=== PATIENT | female | born 1980 | race Caucasian/White ===

== ENCOUNTER 2022-05-16 08:12 | Emergency (ER) | payer SELFPAY ==
--- OUTSIDE RECORDS SUMMARY | 2022-05-16 08:17 | XMS REPORT | Continuity of Care Document ---
:1980 Author Organization [facility] t Address [address] [place] [address] [address] [place] [address] Care Team Providers Name Role Phone DEREK BOYER Primary Care Physician Unavailable DEREK BOYER M.D., DEREK BRYANT M.D. Attending Clinic Sung Mckay Attending Clinician DEREK BOYER M.D., DEREK Hook Admitting Clinician Sung Maynard Admitting Clinician Problems Condition Condition Condition Status Onset Resolution Last Treating Co mments Source Name Details Category Date Date Treatment Clinician Date LEAKING LEAKING Diagnosis Active 2015-09-20 Memoria FLUID FLUID 09-19 18:29:00 l Active 00:00: [place] 09/20/2015 [facility] NO NO Diagnosis Active 2015-11-02 Mem oria 09-19 16:01:00 l CARE, CARE, 00:00: [place] VAGINAL VAGINAL 00 BLEEDING, BLEEDING, POSS POSS Active 09/20/2015 [facility] Anemia Anemia Problem Active 2015-09-25 Oliver cynthia (disorder) (disorder) 03-19 01:47:43 l Active 00:00: [place] 03/19/1990 00 Problem 09/25/2015 [facility] 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 [place] (disorder) (disorder) Active Problem 09/25/2015 [facility] Delivery Delivery Problem Active 2015-09-25 Memoria normal normal 01:47:43 l (disorder) (disorder) He rmann Active Problem 09/25/2015 [facility] Lyme Lyme Problem Active 2015-09-25 Memor ia disease disease 01:47:43 l (disorder) (disorder) He rmann Active Problem 09/25/2015 [facility] ABNORMAL ABNORMAL Diagnosis Active 2015-11-02 Memoria UTERINE UTERINE 16:01:00 l AND AND [place] VAGINAL VAGINAL BLEEDING, BLEEDING, U U Active [facility] Patient Patient Problem Resolve 2015-09-25 2015-09-25 Memoria currently currently d 5- 01:47:43 01:47:43 l 00:00: Deandre n (finding) (finding) 00 Resolved 07/20/2014 Problem 09/25/2015 [facility] 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 d 1- 01:47:43 01:47:43 l (disorder) (disorder) 00:00: He rmann Resolved 00 03/19/2012 Problem 09/25/2015 unkn grade [facility] 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:00: [place] (organism) (organism) 00 Resolved 03/19/2012 Problem 09/25/2015 [facility] Allergies, Adverse Reactions, Alerts Allergy Allergy Status Severity Reaction(s) Onset Inactive Treating Comm ents Source Name Type Date Date Clinician Aspirin Propensi Active 2017-03 [facility] adverse 00:00: Hospita reaction 00 l s to drug Iodine Propensi Active GI Methodi ty to Intolerance 8-19 st adverse 00:00: Hospita reaction 00 l s to drug Food Food Active Moderate [facility]oria Shellfis Shellfis l h h [place] Social History Social Habit Start Date Stop Date Quantity Comments Source History of tobacco Smokes tobacco [facility] use daily Hospital Alcohol intake 2018-02-04 2018-02-04 Current drinker [facility] 00:00:00 00:00:00 of alcohol Hospital (finding) Cigarettes smoked 2018-02-03 2018-02-03 [facility] current (pack per 00:00:00 00:00:00 Hospita l day) - Reported Tobacco use and 2018-02-03 2018-02-03 Smokeless tobacco [facility] exposure 00:00:00 00:00:00 non-user Hospital Social History 2015-09-21 2015-09-21 [facility] 13:09:13 13:09:13 Sex Assigned At [birth year] [facility] 00:00:00 00:00:00 Hospital Smoking Status Start Date Stop Date Source Smokes tobacco daily 2018-02-03 00:00:00 [facility] Medications Ordered Filled Start Stop Current Ordering Indication Dosage Frequency Signature Comments Components Source Medication Medication Date Date Medication? Clinician (SIG) Name Name cephalexin Yes 500 mg = 1 M emoria 500 mg oral 09-21 cap, PO, l capsule 23:53: QID, X 7 Deandre n 00 day, # 28 cap, 0 Refill(s) Keflex No Notes: Memoria - Take on l 18:30: empty [place] 00 stomach. (Same As: Keflex) ferrous No Notes: Memoria sulfate 09-21 Give with l 17:00: food. "Do [place] Not Crush" ibuprofen Yes 600 mg = 1 Me moria 600 mg oral 09-21 tab, PO, l tablet 15:14: Q6H, # 20 Deandre n 00 tab, 0 Refill(s) docusate Yes 100 mg = 1 Mem oria sodium 100 09-21 cap, PO, l mg oral 15:14: BID, PRN Deandre n capsule 00 Constipati on, # 28 cap, 0 Refill(s) ferrous Yes 325 mg = 1 Oliver cynthia sulfate 325 06 tab, PO, l mg oral 15:14: TID-Meals, Herm star enteric 00 # 42 tab, coated 0 tablet Refill(s) Ibuprofen No Notes: Memori a 09-20 (Same as: l 17:00: Motrin) [place] 00 "Do Not Crush" Take with food. No 1 tab, Memoria Multivitami 09-20 Route: PO, l ns oral 14:00: Drug Form: Herm star tablet 00 TAB, Dosing Weight 63.045, kg, Daily, Start date: 09/21/15 9:00:00 CDT, Duration: 30 day, Stop date: 10/20/15 9:00:00 CDT Acetaminoph No Notes: Oliver cynthia en 325 MG / 09-20 (Same as: l Hydrocodone 12:49: [place] Zora nn Bitartrate 00 325/5) Do 5 MG Oral not exceed Tablet 4gm/day of acetaminop hen. Acetaminoph No Notes: Do M emoria en 325 MG / 09-20 not exceed l Hydrocodone 12:49: 4gm/day of [place] Bitartrate 00 acetaminop 10 MG Oral hen. (Same Tablet as: [place] 325/10) Benzocaine No Notes: Memor ia 200 MG/ML 09-20 (Same As: l Topical 12:49: Dermoplast [facility] [place] 00 ) WASTE: [Dermoplast Aerosol - ] Return to Pharmacy FOR EXTERNAL USE ONLY zolpidem No Notes: Memoria 09-20 (Same As: l 12:49: Ambien) [place] 00 lanolin No 1 appl, Memoria topical 09-20 Route: l 12:49: TOP, PRN, [place] 00 Drug form: CRM, PRN Other -See Comment, Start date: 09/21/15 7:49:00 CDT, Duration: 30 day, Stop date: 10/21/15 7:48:00 CDT Bisacodyl No Notes: Memori a 09-20 (Same As: l 12:49: Dulcolax, [place] 00 Bisco-Lax) Lactated No 1,000 mL, Oliver cynthia Ringers 09-20 Rate: 100 l 1,000 mL 12:49: ml/hr, [place] Infuse over: 10 hr, Route: IV, Dosing Weight 63.045 kg, Total Volume: 1,000, Start date: 09/21/15 7:49:00 CDT, Duration: 30 day, Stop date: 10/21/15 7:48:00 CDT Docusate No Notes: Memoria 09-20 (Same as: l 12:49: Colace) [place] 00 (Do Not Crush) Ondansetron No Notes: Oliver cynthia 7-05 (Same as: l 12:49: Zofran) [place] 00 MEDICATION WASTE Product Size: 4 mg Product Wasted: ___ mg Methylergon No Notes: Oliver cynthia ovine 7-05 (Same l 12:49: as:Metherg [place] 00 ine) Oxytocin No Notes: Memoria 0.06 UNT/ML 7-05 (Same as: l Injectable 12:49: OXYTOCIN-D H ermann Solution 00 5LR) Penicillin No 2,500,000 Me moria G 7-05 unit, 50 l 06:00: mL, Route: IVPB, Drug form: INJ, ABXQ4H, Dosing Weight 63.045, kg, Start date: 09/21/15 1:00:00 CDT Ibuprofen No Notes: Memori a 7-05 (Same as: l 05:00: Motrin) "Do Not Crush" Take with food. Saline No Notes: Memoria Flush 0.9% 7-05 (Same as: l 02:00: BD [place] 00 Posiflush) Celestone No Notes: Memori a Soluspan 7-05 (betametha l 02:00: sone [place] 00 acetate-so dium phosphate 6 mg/ml INJ) (Same As: [place] Soluspan) Penicillin No Notes: Memor ia G Potassium 7-05 (Same as: l [id number] 02:00: Pfizerpen) Herm star UNT/ML 00 Injectable MEDICATION Solution WASTE Product Size: 5,000,000 unit Product Wasted: ___ unit Citric Acid No Notes: Oliver cynthia / sodium 7-05 (Same As: l citrate 02:00: Bicitra) Deandre n 00 Methylergon No Notes: Oliver cynthia ovine 7-05 (Same l 02:00: as:Metherg [place] 00 ine) Carboprost No Notes: Memor ia 7-05 (Same As: l 02:00: Hemabate) [place] 00 Misoprostol No Notes: Oliver cynthia 7-05 (Same l 02:00: as:Cytotec [place] 00 ) Take with food Famotidine No Notes: Memor ia -05 (Same as: l 02:00: Pepcid) [place] 00 Can be dilute in 5-10cc NS IVP: Slow IV push over at least 2 minutes. Ondansetron No Notes: Oliver cynthia 7-05 (Same as: l 01:20: Zofran) [place] MEDICATION WASTE Product Size: 4 mg Product Wasted: ___ mg Terbutaline No Notes: Oliver cynthia - DO NOT l 01:20: USE IN [place] MOTOR ANALYST AREA (Same As: Brethine) Lidocaine No Notes: Memori a Hydrochlori 09-20 (Same as: l de 10 MG/ML 01:20: Xylocaine) [place] Injectable 00 Solution Acetaminoph No Notes: Oliver cynthia en 325 MG / 09-20 (Same as: l Hydrocodone 01:20: [place] Zora nn Bitartrate 00 325/5) Do 5 MG Oral not exceed Tablet 4gm/day of acetaminop hen. Oxytocin No Notes: Memoria 0.06 UNT/ML 09-20 (Same as: l Injectable 01:20: OXYTOCIN-D H ermann Solution 00 5LR) Butorphanol No Notes: Oliver cynthia -05 (Same As: l 01:20: Stadol) [place] 00 Lactated No 1,000 mL, Oliver cynthia Ringers 09-20 Rate: 125 l 1,000 mL 01:20: ml/hr, [place] 00 Infuse over: 8 hr, Route: IV, Dosing Weight 63.045 kg, Total Volume: 1,000, Start date: 09/20/15 20:20:00 CDT, Duration: 30 day, Stop date: 10/20/15 20:19:00 CDT Saline No Notes: Memoria Flush 0.9% 05 (Same as: l 00:24: BD [place] 00 Posiflush) Calcium No 1,000 mL, Memor ia Chloride 09-19 Rate: 125 l 0.0014 22:30: ml/hr, [place] MEQ/ML / 00 Infuse Potassium over: 8 Chloride hr, Route: 0.004 IV, Dosing MEQ/ML / Weight Sodium 63.045 kg, Chloride Total 0.103 Volume: MEQ/ML / 1,000, Sodium Start Lactate date: 0.028 09/20/15 MEQ/ML 17:30:00 Injectable CDT, Solution Duration: 30 day, Stop date: 10/20/15 17:29:00 CDT Vital Signs Vital Name Observation Time Observation Value Comments Source Heart Rate 2015-09-22 21:29:00 [facility] [place] Temperature Oral (F) 2015-09-22 21:29:00 97.8 F [facility] [place] Systolic (mm Hg) 2015-09-22 21:29:00 Oliver rial [place] Diastolic (mm Hg) 2015-09-22 21:29:00 Mem orial [place] Respitory Rate 2015-09-22 21:29:00 Memori al [place] Systolic (mm Hg) 2015-09-22 12:51:00 Oliver rial [place] Diastolic (mm Hg) 2015-09-22 12:51:00 Mem orial [place] Respitory Rate 2015-09-22 12:51:00 Memori al [place] Temperature Oral (F) 2015-09-22 12:51:00 97.7 F [facility] [place] Heart Rate 2015-09-22 12:51:00 [facility] [place] Respitory Rate 2015-09-22 09:13:00 Memori al [place] Heart Rate 2015-09-22 09:13:00 [facility] [place] Systolic (mm Hg) 2015-09-22 09:13:00 Oliver rial [place] Diastolic (mm Hg) 2015-09-22 09:13:00 Mem orial [place] Temperature Oral (F) 2015-09-22 09:13:00 97.8 F [facility] [place] Weight 2015-09-21 13:02:00 [facility] [place] Weight 2015-09-20 21:44:00 [facility] [place] BMI Calculated 2015-09-20 21:44:00 Memori al [place] Height 2015-09-20 21:44:00 152.4 cm [facility] [place] Procedures This patient has no known procedures. Plan of Care Planned Activity Planned Date Details Comments Source Future Scheduled 2022-03-11 [facility] (#1) [code = COVID-19 VACCINE (#1)] Future Scheduled 2022-03-11 Scre[facility] for [facility] Test 15:26:48 malignant neoplasm of cervix (procedure) [code = 839906408] Future Scheduled 2022-03-11 BREAST CANCER [facility] Test 15:26:48 SCREENING [code = BREAST CANCER SCREENING] Future Scheduled 2022-03-11 [facility]ACCINE [facility] Test 15:26:48 [code = INFLUENZA VACCINE] Encounters Start End Encounter Admission Attending Care Care Encounter Source Date/Time Date/Time Type Type Clinicians Facility Department ID 2017-04-24 2017-04-24 Emergency E [facility] [id number] 17:02:00 17:02:00 [facility] 2017-04-11 2017-04-15 Inpatient Henry BOYER, [facility] [id number] [address] 06:40:00 15:30:00 DEREK BRYANT M.D. [facility] 2015-09-20 2015-09-22 [facility]patient [facility] [id number] [facility] 23[facility]30[facility]00 [place] 00 l [facility] 2015-09-20 2015-09-22 Outpatient ANNE Eaton [facility] [id number] 16:26:00 18:30:00 Sung Wilder 00 Results Test Description Test Time Test Comments Results Result Sour e Comments [id number]&PELVIS 2017-04-15 CT ABDOMEN&PELVIS W/CONTRAST 04:06:06 W/CONTRASTLocation:J9Aft er hours services provided 04/15/2017 4:00 AMIndication: HematomaComparison:None availableTechnique: Axial CT images were acquired through the abdomen and pelvisfollowing the bolus administration of intravenous contrast. Sagittal andcoronal reformatted images are provided for interpretation. All CT scansat this facility use dose modulation, iterative reconstruction, and/orweight-based dosing when appropriate to reduce radiation dose to as lowas reasonably possible.Findings:Lower thorax: Lung bases are clearHepatobiliary: The liver is normal in size and density. No intrahepaticbiliary duct dilatation is seen. Nonspecific thickening of thegallbladder wall. Correlate for right upper quadrant tenderness.Spleen, pancreas and adrenal glands: NormalUrogenital: The kidneys are normal in size and density with no evidenceof stone or hydronephrosis. The ureters are normal in course andcaliber. The urinary bladder appears normal. Postsurgical changes areseen within the anterior abdominal wall consistent with recent cesareansection. Hyperdense material is present within the endometrial cavitybest visualized on axial image 72 series 3 and coronal image 43measuring approximately 2.7 cm craniocaudal x 1.7 cm anterior posteriorx 2.3 cm mediolateral. This could represent blood products or retainedproducts of conception. Expected subcutaneous fat stranding andemphysematous changes are noted consistent with the early postprocedural period.Gastrointestinal: No evidence of bowel obstruction or intra-abdominalfree fluid. Trace free air is noted as described above.Lymph nodes and retroperitoneum: No adenopathy or retroperitoneal mass.Vasculature:No acute abnormality.Bones and soft tissues: Unremarkable.Impression: 1. Postsurgical changes from section. There is hyperdensematerial extending into the lower uterine segment which could representblood products versus retained products of conception. Pelvic ultrasoundis recommended for further evaluation.2. Nonspecific thickening of the gallbladder wall. Correlate with rightupper quadrant tenderness. Consider right upper quadrant ultrasound ifindicated.3. Expected postsurgical changes in the anterior abdominal wall andperitoneum. Basic Metabolic Panel 2017-04-15 00:46:00 Test Item Value Reference Range Interpretation Comme nts Sodium (test code = NA) 136 mmol/L 135-145 N Potassium (test code = K) 4.0 mmol/L 3.5-5.1 N Chloride (test code = CL) 101 mmol/L 98-105 N Carbon Dioxide (test code = 27 mmol/L 22-29 N CO2) Glucose (test code = GLU) 93 mg/dL 70-115 N Blood Urea Nitrogen (test 11 mg/dL 6-20 N code = BUN) Creatinine (test code = 0.6 mg/dL 0.5-0.9 N CREAT) Calcium (test code = CA) 8.6 mg/dL 8.3-10.5 N BUN/Creatinine Ratio (test 18.3 code = BCRATIO) Anion Gap (test code = 8 mmol/L 7-16 N AGAP) Estimated GFR (test code = >60 mL/min/1.73m2 eGFR (estimated Glomerular GFR) Filtration Rate ) is an estimated value ,calculated from the patien t's serum creatinine usin g the MDRD equation.It is NOT the patient's actua l GFR. The eGFR provides a more clinicallyusefu l measure of kidney disease than serum creatinine sergio e.This calculation derick es sex and race into accou nt, if the informationis p rovided. If the race is not provided, and the patient isAfrican-Amjono can, multiply by 1.212. If se x is not provided, and t hepatient is female, multipl y by 0.742. Results for pat ients <18 years ofage hav e not been validated by e MDRD study and should be i nterpretedwith caution.eGFR Re sult Interpretation: eGFR > or = 60 is in the Ro l RangeeGFR < 60 may mean kid aurelio diseaseeGFR < 1 5 may mean kidney failure* Ranges recommended by the National Kidney Foundation,http ://nkdep.nih.g ov CBC with [id number] 20:59:00 Test Item Value Reference Range Interpretation Comments WBC (test code = WBC) 5.7 K/cumm 4.4-10.5 N RBC (test code = RBC) 2.63 M/cumm 3.75-5.20 L Hemoglobin (test code 6.9 gm/dL 12.2-14.8 LL = HGB) Hematocrit (test code 21.7 % 36.5-44.4 L = HCT) MCV (test code = MCV) 82.8 fL 80-100 N MCH (test code = MCH) 26.3 pg 27.0-32.5 L MCHC (test code = 31.8 g/dL 32.0-37.5 L MCHC) RDW (test code = RDW) 17.1 % 11.5-14.5 H Platelet Count (test 283 K/cumm 140-440 N code = PLTCT) MPV (test code = MPV) 8.3 fL Diff Method (test code Auto = DIFFM) Neutrophil (test code 62.7 % 36-70 N = NEUT) Lymphocyte (test code 29.6 % 12-44 N = LYMPH) Monocyte (test code = 4.1 % 0-11 N MONO) Eosinophil (test code 3.2 % 0-7 N = EOS) Basophil (test code = 0.4 % 0-2 N BASO) Neutro Abs (test code 3.6 K/cumm 1.6-7.4 N = ANEUT) Lymph Abs (test code = 1.7 K/cumm 0.5-4.6 N ALYMPH) Ulster Abs (test code = 0.2 K/cumm 0.0-1.2 N AMONO) Eos Abs (test code = 0.18 K/cumm 0.00-0.74 N AEOS) Baso Abs (test code = 0.0 K/cumm 0.00-0.21 N ABASO) RBC Morphology (test Slight Polychromasia ; code = RBCMRPH) Slight Anisocytosis ; Few Rouleaux Present Hypochromic (test code Slight = HYPO) Platelet Est (test Normal Platelet on code = PLTEST) Smear CBC with [id number] 08:41:00 Test Item Value Reference Range Interpretation Comments WBC (test code = WBC) 6.4 K/cumm 4.4-10.5 N RBC (test code = RBC) 2.90 M/cumm 3.75-5.20 L Hemoglobin (test code = HGB) 7.3 gm/dL 12.2-14.8 L Hematocrit (test code = HCT) 22.9 % 36.5-44.4 L MCV (test code = MCV) 79.1 fL 80-100 L MCH (test code = MCH) 25.3 pg 27.0-32.5 L MCHC (test code = MCHC) 32.0 g/dL 32.0-37.5 N RDW (test code = RDW) 16.7 % 11.5-14.5 H Platelet Count (test code = 249 K/cumm 140-440 N PLTCT) MPV (test code = MPV) 9.6 fL Diff Method (test code = DIFFM) Auto Neutrophil (test code = NEUT) 65.5 % 36-70 N Lymphocyte (test code = LYMPH) 27.2 % 12-44 N Monocyte (test code = MONO) 4.6 % 0-11 N Eosinophil (test code = EOS) 2.3 % 0-7 N Basophil (test code = BASO) 0.4 % 0-2 N Neutro Abs (test code = ANEUT) 4.2 K/cumm 1.6-7.4 N Lymph Abs (test code = ALYMPH) 1.7 K/cumm 0.5-4.6 N Ulster Abs (test code = AMONO) 0.3 K/cumm 0.0-1.2 N Eos Abs (test code = AEOS) 0.15 K/cumm 0.00-0.74 N Baso Abs (test code = ABASO) 0.0 K/cumm 0.00-0.21 N Hypochromic (test code = HYPO) Slight RBC, Crossmatch [id number] 06:00:00 Test Item Value Reference Range Interpretation Comments Product 1 Code (test code = E4533 PRODCODE1) Unit 1 ID (test code = [id number] UNITID1) Unit 1 ABO (test code = A UNITABO1) Unit 1 Rh (test code = POS UNITRH1) Unit 1 Interp (test code = Compatible UNITINTERP1) Unit 1 Status (test code = PT UNITSTAT1) Product 2 Code (test code = E0336 PRODCODE2) Unit 2 ID (test code = [id number] UNITID2) Unit 2 ABO (test code = A UNITABO2) Unit 2 Rh (test code = POS UNITRH2) Unit 2 Interp (test code = Compatible UNITINTERP2) Unit 2 Status (test code = PT UNITSTAT2) Product 3 Code (test code = E4532 PRODCODE3) Unit 3 ID (test code = [id number] UNITID3) Unit 3 ABO (test code = A UNITABO3) Unit 3 Rh (test code = POS UNITRH3) Unit 3 Interp (test code = Compatible UNITINTERP3) Unit 3 Status (test code = PT UNITSTAT3) [id number] 18:53:00 Test Item Value Reference Range Interpretation Comments WBC (test code = 11.1 K/cumm 4.4-10.5 H WBC) RBC (test code = 3.17 M/cumm 3.75-5.20 L RBC) Hemoglobin (test 8.2 gm/dL 12.2-14.8 L READ BACK L AB code = HGB) VALUESVERIFIED BY REPEAT TESTINGc alled to Gloria Rossi @ [facility] tra nsfused Hematocrit (test 24.9 % 36.5-44.4 L code = HCT) MCV (test code = 78.7 fL 80-100 L MCV) MCH (test code = 25.9 pg 27.0-32.5 L MCH) MCHC (test code = 32.9 g/dL 32.0-37.5 N MCHC) RDW (test code = 15.8 % 11.5-14.5 H RDW) Platelet Count 193 K/cumm 140-440 N (test code = PLTCT) MPV (test code = 11.0 fL MPV) Hemogram [id number] 23:57:00 Test Item Value Reference Range Interpretation Comments WBC (test code = WBC) 9.1 K/cumm 4.4-10.5 N RBC (test code = RBC) 2.13 M/cumm 3.75-5.20 L Hemoglobin (test code = HGB) 4.9 g/dL 12.2-14.8 LL Hematocrit (test code = HCT) 16.7 % 36.5-44.4 L MCV (test code = MCV) 78.1 fL 80.0-100.0 L MCH (test code = MCH) 23.0 pg 27.0-32.5 L MCHC (test code = MCHC) 29.4 g/dL 32.0-37.5 L RDW (test code = RDW) 17.1 % 11.5-14.5 H Platelet Count (test code = 209 K/cumm 140-440 N PLTCT) MPV (test code = MPV) 9.3 fL RPR, [id number] 15:50:00 Test Item Value Reference Range Interpretation Comments RPR (test code = RPR) Non-Reactive Non-Reactive N HIV [id number] 15:25:00 Test Item Value Reference Range Interpretation Comments HIV 1/2 Antibody Non-Reactive Non-Reactive N HIV1/2 Anti body screen (test code = result indicate s the HIV1/2AB) absence of HIV1 and OXP2feujoppjl.H owever, A Non-Reactive screen result does not rule out exposure orinfection. If an acute infection is suspected, HIV RNA Quantitative is recommended. P24 Antigen (test Non-Reactive Non-Reactive N P24 Ag scr een result code = P24) indicates the a bsence of P24 antigen, which is anindicator of HIV-1 acute infection.Howev er, A Non-Reactive sc reen does not rule o ut exposure or infection.If ac margaret HIV-1 is suspec gilberto, HIV RNA Quantit ative is recommended. Rubella [id number] 15:10:00 Test Item Value Reference Range Interpretation Comments Rubella IgG (test code = RUBELIGG) Immune Immune N Antibody Screen - [id number] 08:08:00 Test Item Value Reference Range Interpretation Comments Antibody Screen (test code = ABSCR) Negative Hep B Surface [id number] 08:00:00 Test Item Value Reference Range Interpretation Comments Hep Bs Ag (test code = HBSAG) Nonreactive Non-Reactive A [id number] 08:00:00 Test Item Value Reference Range Interpretation Comments Amphetamine (test code Negative Negative N For d iagnostic purposes = AMPH) only, positive results should always b e assessedin conjunctionwith the patient's medic al history,clinica l examination and otherfindings.T o fulfill legal requirements, a more specific altern ate chemical method must be used inorder to obtain a Confirmed davion lytical result. GC/MS i s the preferred confi rmatory method. Barbiturates (test Negative Negative N code = DORCAS) Benzodiazepine (test Negative Negative N code = ROSA MARIA) Cocaine (test code = Negative Negative N COCA) Methadone (test code = Negative Negative N MTHD) Opiates (test code = Negative Negative N OPIA) PCP (test code = PCP) Negative Negative N Propoxyphene (test Negative Negative N code = PROPOX) THC (test code = THC) Negative Negative N Blood Type and [id number] 07:51:00 Test Item Value Reference Range Interpretation Comments ABO type (test code = ABO) A Rh Type (test code = RH) Positive Blood Gas+pH+[id number] 07:36:00 Test Item Value Reference Range Interpretation Comments pH, Blood Gas (test code 7.311 pH Units = BGPH) pCO2 (test code = PCO2) 42.7 mm Hg Bicarbonate (test code = 21.5 HCO3) Base Excess (test code = -4.6 mmol/L BE) tHB (test code = RTHB) 15.2 gm/dL Hematocrit, Blood Gas 46.6 % (test code = BGHCT) FIO2 % (test code = 21 % FIO2) Patient Temperature 37.0 Degrees Celcius (test code = PTTEMP) Comment (test code = NICPH ''VENOUS'' COMMENT) Puncture Site (test code Umbilical = PUNSITE) Drawing Tech ID (test DRLeo ROSALIND code = DRAWTECH) Respiratory Rate (test 0 code = RESP RATE) Blood Gas+pH+[id number] 07:34:00 Test Item Value Reference Range Interpretation Comments pH, Blood Gas (test code 7.319 pH Units = BGPH) pCO2 (test code = PCO2) 47.5 mm Hg Bicarbonate (test code = 24.4 HCO3) Base Excess (test code = -2.2 mmol/L BE) tHB (test code = RTHB) 15.1 gm/dL Hematocrit, Blood Gas 46.2 % (test code = BGHCT) FIO2 % (test code = 21 % FIO2) Patient Temperature 37.0 Degrees Celcius (test code = PTTEMP) Comment (test code = NICPH ''ARTERIAL'' COMMENT) Puncture Site (test code Umbilical = PUNSITE) Drawing Tech ID (test ROSALIND code = DRAWTECH) Respiratory Rate (test 0 code = RESP RATE) CBC LD with [id number] 07:23:00 Test Item Value Reference Range Interpretation Comments WBC (test code = WBC) 12.0 K/cumm 4.4-10.5 H RBC (test code = RBC) 4.06 M/cumm 3.7-5.2 N Hemoglobin (test code = HGB) 9.3 g/dL 12.2-14.8 L Hematocrit (test code = HCT) 30.1 % 36.5-44.4 L MCV (test code = MCV) 74.0 fL 80.0-100.0 L MCH (test code = MCH) 22.9 pg 27.0-32.5 L MCHC (test code = MCHC) 31 g/dL 32-37 L RDW (test code = RDW) 16.7 % 11.5-14.5 H Platelet Count (test code = 245 K/cumm 140-440 N PLTCT) MPV (test code = MPV) 11.0 fL Diff Method (test code = DIFFM) Auto Neutrophil (test code = NEUT) 74.2 % 36.0-70.0 H Lymphocyte (test code = LYMPH) 19.6 % 12.0-44.0 N Monocyte (test code = MONO) 4.7 % 0.0-11.0 N Eosinophil (test code = EOS) 1.0 % 0.0-7.0 N Basophil (test code = BASO) 0.4 % 0.0-2.0 N Neutro Abs (test code = ANEUT) 8.9 K/cumm 1.6-7.4 H Lymph Abs (test code = ALYMPH) 2.3 K/cumm 0.5-4.6 N Ulster Abs (test code = AMONO) 0.6 K/cumm 0.0-1.2 N Eos Abs (test code = AEOS) 0.1 K/cumm 0.0-0.7 N Baso Abs (test code = ABASO) 0.1 K/cumm 0.0-0.2 N Microcytosis (test code = MICRO) Slight Hypochromic (test code = HYPO) Moderate [id number] 00:08:00 Test Item Value Reference Range Interpretation Comments Hct (test code = Hct) 25.6 36.0-48.0 [id number] 00:08:00 Test Item Value Reference Range Interpretation Comments Hgb (test code = Hgb) 7.8 12.0-16.0 [facility] [id number] 10:07:00 Test Item Value Reference Range Interpretation Comments N gonorrhea by Amp Det Negative *NA*(09/21/15 (APTIMA) (test code = N 5:07 AM) gonorrhea by Amp Det (APTIMA)) [facility] [id number] 10:07:00 Test Item Value Reference Range Interpretation Comments C trachomatis by Amp Det Negative *NA*(09/21/15 (APTIMA) (test code = C 5:07 AM) trachomatis by Amp Det (APTIMA)) [facility] [id number] 10:07:00 Test Item Value Reference Range Interpretation Comments Source APTIMA (test Vaginal *NA*(09/21/15 code = Source APTIMA) 5:07 AM) [facility] BANK [id number] 01:35:00 Test Item Value Reference Range Interpretation Comments Rhig Reqd (test code = See Note 1(09/20/15 8:35 Rhig Reqd) PM) [facility] [id number] 01:35:00 Test Item Value Reference Range Interpretation Comments Antibody Scrn (test Negative (09/20/15 8:35 code = Antibody Scrn) PM) [facility] [id number] 01:35:00 Test Item Value Reference Range Interpretation Comments ABO/Rh (test code = ABO/Rh) A POS [id number] 01:35:00 Test Item Value Reference Range Interpretation Comments Lymphocytes (test code = Lymphocytes) 27.3 20.0-40.0 [facility] [id number] 01:35:00 Test Item Value Reference Range Interpretation Comments Plt Morph (test code = Normal (09/20/15 8:35 PM) Plt Morph) [facility] [id number] 01:35:00 Test Item Value Reference Range Interpretation Comments Segs (test code = Segs) 65.9 45.0-75.0 [facility] [id number] 01:35:00 Test Item Value Reference Range Interpretation Comments RBC Morph (test code = See Note (09/20/15 8:35 RBC Morph) PM) [facility] [id number] 01:35:00 Test Item Value Reference Range Interpretation Comments Anisocyte (test code = 1+ *ABN*(09/20/15 8:35 Anisocyte) PM) [facility] [id number] 01:35:00 Test Item Value Reference Range Interpretation Comments Microcyte (test code = 1+ *ABN*(09/20/15 8:35 Microcyte) PM) [facility] [id number] 01:35:00 Test Item Value Reference Range Interpretation Comments Eosinophils # (test code 0.1 See_Comment [A utomated message] The = Eosinophils #) system whic h generated this result tra nsmitted reference range : <=0.5. The reference r precious was not used to int erpret this result as normal/abnormal . [facility] [id number] 01:35:00 Test Item Value Reference Range Interpretation Comments Basophils # (test code 0.1 See_Comment [Aut omated message] The = Basophils #) system which generated this result tra nsmitted reference range : <=0.2. The reference r precious was not used to int erpret this result as normal/abnormal . [facility] [id number] 01:35:00 Test Item Value Reference Range Interpretation Comments Monocytes # (test code 0.3 See_Comment [Aut omated message] The = Monocytes #) system which generated this result tra nsmitted reference range : <=0.8. The reference r precious was not used to int erpret this result as normal/abnormal . [facility] CenterEhyclcnUIGWNCOERN7610-95-28:35:00 Test Item Value Reference Range Interpretation Comments Lymphocytes # (test code = Lymphocytes 1.7 1.0-5.5 #) [facility] CenterXywlhayJOMNSJOOWB0780-96-31:35:00 Test Item Value Reference Range Interpretation Comments Basophils (test code = 1.1 See_Comment [Aut omated message] The Basophils) system which ge nerated this result tra nsmitted reference range : <=1.0. The reference r precious was not used to int erpret this result as normal/abnormal . [facility] CenterWyxmyypSAPQMVWFKM1276-79-16:35:00 Test Item Value Reference Range Interpretation Comments Segs-Bands # (test code = Segs-Bands #) 4.0 1.5-8.1 [facility] Cent[id number] 01:35:00 Test Item Value Reference Range Interpretation Comments Monocytes (test code = Monocytes) 4.7 2.0-12.0 [facility] C[id number] 01:35:00 Test Item Value Reference Range Interpretation Comments Eosinophils (test code = 1.0 See_Comment [A utomated message] The Eosinophils) system which ge nerated this result tra nsmitted reference range : <=4.0. The reference r precious was not used to int erpret this result as normal/abnormal . [facility] [id number] 01:35:00 Test Item Value Reference Range Interpretation Comments MPV (test code = MPV) 9.6 7.4-10.4 [facility] [id number] 01:35:00 Test Item Value Reference Range Interpretation Comments RBC (test code = RBC) 4.26 4.20-5.40 [facility] CenterAmycxirMLOPZDMMLX3751-08-71 01:35:00 Test Item Value Reference Range Interpretation Comments WBC (test code = WBC) 6.1 3.7-10.4 [facility] CenterVunifckUMKSDVXSME8345-15-80 01:35:00 Test Item Value Reference Range Interpretation Comments MCV (test code = MCV) 75.0 80.0-98.0 [facility] [id number] 01:35:00 Test Item Value Reference Range Interpretation Comments MCH (test code = MCH) 22.5 pg 27.0-31.0 [facility] Cent[id number] 01:35:00 Test Item Value Reference Range Interpretation Comments Hct (test code = Hct) 32.0 36.0-48.0 [facility] [id number] 01:35:00 Test Item Value Reference Range Interpretation Comments Hgb (test code = Hgb) 9.6 12.0-16.0 [facility] [id number] 01:35:00 Test Item Value Reference Range Interpretation Comments RDW (test code = RDW) 22.5 11.5-14.5 [facility] Cent[id number] 01:35:00 Test Item Value Reference Range Interpretation Comments Platelet (test code = Platelet) 156 133-450 [facility] Cent[id number] 01:35:00 Test Item Value Reference Range Interpretation Comments MCHC (test code = MCHC) 30.0 32.0-36.0 [id number] 01:35:00 Test Item Value Reference Range Interpretation Comments Rubella IgG (test code = Rubella IgG) no gt [facility] [id number] 01:35:00 Test Item Value Reference Range Interpretation Comments Treponemal Scr (test Non Reactive code = Treponemal Scr) *NA*(09/20/15 8:35 PM) [facility] [id number] 01:35:00 Test Item Value Reference Range Interpretation Comments Hep Bs Ag (test code Negative *NA*(09/20/15 = Hep Bs Ag) 8:35 PM) [facility] [id number] 01:35:00 Test Item Value Reference Range Interpretation Comments HIV. (test code = Negative *NA*(09/20/15 HIV.) 8:35 PM) [facility] [id number] 22:05:00 Test Item Value Reference Range Interpretation Comments Amnisure ROM (test code Negative 1(09/20/15 5:05 = Amnisure ROM) PM) [facility] [id number] 21:44:00 Test Item Value Reference Range Interpretation Comments UA Color (test code = UA Color) [facility] [id number] 21:44:00 Test Item Value Reference Range Interpretation Comments UA Spec Grav (test code = UA Spec Grav) 1.026 [facility] [id number] 21:44:00 Test Item Value Reference Range Interpretation Comments UA Turbidity (test code Slight *ABN*(09/20/15 = UA Turbidity) 4:44 PM) [facility] [id number] 21:44:00 Test Item Value Reference Range Interpretation Comments UA Bili (test code = Small *ABN*(09/20/15 4:44 UA Bili) PM) [facility] [id number] 21:44:00 Test Item Value Reference Range Interpretation Comments UA Ketones (test code = UA Trace mg/dL Ketones) [facility] [id number] 21:44:00 Test Item Value Reference Range Interpretation Comments UA Glucose (test code = UA Negative mg/dL Glucose) [facility] [id number] 21:44:00 Test Item Value Reference Range Interpretation Comments UA Protein (test code = UA Protein) 100 mg/dL [facility] [id number] 21:44:00 Test Item Value Reference Range Interpretation Comments UA pH (test code = UA pH) 6.0 5.0-8.0 [facility] [id number] 21:44:00 Test Item Value Reference Range Interpretation Comments UA Blood (test code = Moderate *ABN*(09/20/15 UA Blood) 4:44 PM) [facility] [id number] 21:44:00 Test Item Value Reference Range Interpretation Comments UA Nitrite (test code Positive *ABN*(09/20/15 = UA Nitrite) 4:44 PM) [facility] [id number] 21:44:00 Test Item Value Reference Range Interpretation Comments UA Urobilinogen (test code = UA 4.0 0.1-1.0 Urobilinogen) [facility] [id number] 21:44:00 Test Item Value Reference Range Interpretation Comments UA Leuk Est (test Moderate *ABN*(09/20/15 code = UA Leuk Est) 4:44 PM) [facility] [id number] 21:44:00 Test Item Value Reference Range Interpretation Comments UA Bacteria (test code = UA Moderate /HPF Bacteria) [facility] [id number] 21:44:00 Test Item Value Reference Range Interpretation Comments UA RBC (test code = 2 See_Comment [Automa gilberto message] The UA RBC) system which ge nerated this result transmit gilberto reference range : <=2. The reference range was not used to interpr et this result as ro l/abnormal. [facility] [id number] 21:44:00 Test Item Value Reference Range Interpretation Comments UA WBC (test code = 85 See_Comment [Automa gilberto message] The UA WBC) system which ge nerated this result transmit gilberto reference range : <=5. The reference range was not used to interpr et this result as ro l/abnormal. [facility] [id number] 21:44:00 Test Item Value Reference Range Interpretation Comments UA Sq Epi (test code = UA Sq Epi) Many /LPF [facility] [id number] 21:44:00 Test Item Value Reference Range Interpretation Comments U Amph Scr (test code Negative *NA*(09/20/15 = U Amph Scr) 4:44 PM) [facility] [id number] 21:44:00 Test Item Value Reference Range Interpretation Comments U Opiate Scr (test Negative *NA*(09/20/15 code = U Opiate Scr) 4:44 PM) [facility] [id number] 21:44:00 Test Item Value Reference Range Interpretation Comments UDS Note (test code = See Note (09/20/15 4:44 UDS Note) PM) [facility] [id number] 21:44:00 Test Item Value Reference Range Interpretation Comments U Phencyc Scr (test Negative *NA*(09/20/15 code = U Phencyc Scr) 4:44 PM) [facility] [id number] 21:44:00 Test Item Value Reference Range Interpretation Comments U Dorcas Scr (test code Negative *NA*(09/20/15 = U Dorcas Scr) 4:44 PM) [facility] [id number] 21:44:00 Test Item Value Reference Range Interpretation Comments U Cannab Scr (test Positive *ABN*(09/20/15 code = U Cannab Scr) 4:44 PM) [facility] [id number] 21:44:00 Test Item Value Reference Range Interpretation Comments U Cocaine Scr (test Negative *NA*(09/20/15 code = U Cocaine Scr) 4:44 PM) [facility] [id number] 21:44:00 Test Item Value Reference Range Interpretation Comments U Benzodia Scr (test Negative *NA*(09/20/15 code = U Benzodia Scr) 4:44 PM) [facility] [id number] 21:44:00 Test Item Value Reference Range Interpretation Comments UA Trans Epi (test code = UA Trans Epi) 3 [facility] [id number] 21:44:00 Test Item Value Reference Range Interpretation Comments UA Mucus (test code = UA Mucus) Many /LPF [facility]
[2022-05-16 08:30] LABS: Urine Blood 3+ (Negative); Urine Glucose Negative (Negative); Urine Protein 2+ (Negative); Urine Specific Gravity >=1.030 (1.005-1.030); Urine pH 5.5 (5.0-7.0)
[2022-05-16] MEDS ORDERED: ONDANSETRON 4 MG (ODT) TAB ONE (08:43)
[2022-05-16 08:58] LABS: Urine Specific Gravity/Preg >1.030 (1.005-1.030)
--- NOTE | 2022-05-16 09:07 | EDPHYS ---
Physician Documentation [facility] Name: Loren Veliz Age: 42 yrs Sex: Female : 1980 Arrival Date: 05/16/2022 Time: 08:14 Bed 20 Private MD: ED Physician Win Aquino HPI: 05/16 13:35 This 42 yrs old Female presents to ER via Ambulatory with complaints of Dizziness, ms3 General Weakness, Nausea. 13:35 42-year-old female with past medical history presents for nausea, vomiting, diarrhea ms3 that is been ongoing for 3 days. Patient denies pain. Patient endorses generalized weakness, chills. Patient denies sick contacts, fever. 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 - Social history:: Smoking status: Patient denies any tobacco usage or history of. ROS: 13:35 Neck: Negative for injury, pain, and swelling, Cardiovascular: Negative for chest pain, ms3 and palpitations. Respiratory: Negative for shortness of breath, cough, wheezing, and pleuritic chest pain. 13:35 Skin: Negative for injury, rash, and discoloration, Neuro: Negative for headache, weakness, numbness, tingling. 13:35 Constitutional: Positive for chills. 13:35 Abdomen/GI: Positive for nausea, vomiting, and diarrhea. 13:35 All other systems are negative. Exam: 13:35 Constitutional: This is a well developed, well nourished patient who is awake, alert, ms3 and in no acute distress. Head/Face: Normocephalic, atraumatic. Eyes: Pupils equal round and reactive to light, extra-ocular motions intact. Lids and lashes normal. Conjunctiva and sclera are non-icteric and not injected. Periorbital areas with no swelling, redness, or edema. Chest/axilla: Normal chest wall appearance and motion. Nontender with no deformity. Cardiovascular: Regular rate and rhythm with a normal S1 and S2. No gallops, murmurs, or rubs. Normal PMI, no JVD. No pulse deficits. Respiratory: Lungs have equal breath sounds bilaterally, clear to auscultation and percussion. No rales, rhonchi or wheezes noted. No increased work of breathing, no retractions or nasal flaring. Abdomen/GI: Soft, non-tender, with normal bowel sounds. No distension or tympany. No guarding or rebound. No evidence of tenderness throughout. Skin: Warm, dry with normal turgor. Normal color with no rashes, no lesions, and no evidence of cellulitis. MS/ Extremity: Pulses equal, no cyanosis. Neurovascular intact. Full, normal range of motion. Neuro: Awake and alert, GCS 15, oriented to person, place, time, and situation. Cranial nerves II-XII grossly intact. Motor strength 5/5 in all extremities. Sensory grossly intact. Cerebellar exam normal. Normal gait. Vital Signs: 08:15 BP 133 / 92; Pulse 84; Resp 16; Temp 98.2(O); Pulse Ox 100% on R/A; ko1 MDM: 08:37 Patient medically screened. ms3 13:35 Differential diagnosis: generalized weakness, Dehydration vs UTI. Data reviewed: vital ms3 signs, nurses notes, lab test result(s), urinalysis, and as a result, I will discharge patient. Counseling: I had a detailed discussion with the patient and/or guardian regarding: the historical points, exam findings, and any diagnostic results supporting the discharge/admit diagnosis, lab results, the need for outpatient follow up, to return to the emergency department if symptoms worsen or persist or if there are any questions or concerns that arise at home. ED course: Discussed urinalysis and physical exam findings with patient. Patient to follow-up with primary care physician in 2 to 3 days. Patient understands agrees to plan. Patient prescription for Vantin. All questions were answered. Return precautions discussed include worsening symptoms, or any other concerns. On reevaluation patient is improved, in no apparent distress, nontoxic, ambulatory Emergency Department, speaking full sentences.. 05/16 08:30 Order name: Urine Dipstick-Ancillary; Complete Time: 08:34 EDMS 05/16 08:45 Order name: Urine --Ancillary (enter results) bd 05/16 08:35 Order name: PO challenge; Complete Time: 08:40 ms3 05/16 08:59 Order name: Urine --Ancillary; Complete Time: 10:02 EDMS Administered Medications: 08:37 Drug: Ondansetron 4 mg Route: PO; ko1 09:11 Follow up: Response: No adverse reaction; Nausea is decreased ko1 Disposition Summary: 05/16/22 09:06 Discharge Ordered Location: Home ms3 Condition: Stable ms3 Diagnosis - UTI/ Urinary tract infection, site not specified ms3 - Vomiting ms3 Followup: ms3 - With: Jorje Oro MD - When: 2 - 3 days - Reason: Recheck today's complaints Discharge Instructions: - Discharge Summary Sheet ms3 - Urinary Tract Infection, Adult ms3 Forms: - Medication Reconciliation Form ms3 - Thank You Letter ms3 - Antibiotic Education ms3 - Prescription Opioid Use ms3 Prescriptions: - Zofran 4 mg Oral Tablet - take 1 tablet by ORAL route every 12 hours As needed; 20 tablet; Refills: 0, ms3 Product Selection Permitted - cefpodoxime 200 mg Oral Tablet - take 1 tablet by ORAL route every 12 hours with food; 20 tablet; Refills: 0, ms3 Product Selection Permitted Signatures: Dispatcher [employer] EDMS Win Aquino DO DO ms3 Gisele Hopkins, RN RN ko1
--- NOTE | 2022-05-16 09:07 | ER ---
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 Coronavirus screen: At this time, the client does not indicate any symptoms associated with coronavirus-19. Ebola Screen: No symptoms or risks identified at this time. Initial Sepsis Screen: Does the patient meet any 2 criteria? No. Patient's initial sepsis screen is negative. Does the patient have a suspected source of infection? No. Patient's initial sepsis screen is negative. Risk Assessment: Do you want to hurt yourself or someone else? Patient reports no desire to harm self or others. Onset of symptoms was May 16, 2022. 08:15 Method Of Arrival: Ambulatory ko1 08:15 Acuity: YULIET 3 ko1 Triage Assessment: 08:52 General: Appears in no apparent distress. comfortable, Behavior is calm, cooperative, ko1 appropriate for age. Pain: Complains of pain in my teeth. GI: Reports nausea, vomiting. 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 - Social history:: Smoking status: Patient denies any tobacco usage or history of. Screenin:53 [facility] ED Fall Risk Assessment (Adult) History of falling in the last 3 months, ko1 including since admission No falls in past 3 months (0 pts) Confusion or Disorientation No (0 pts) Intoxicated or Sedated No (0 pts) Impaired Gait No (0 pts) Mobility Assist Device Used No (0 pt) Altered Elimination No (0 pt) Score/Fall Risk Level 0 - 2 = Low Risk Oriented to surroundings, Maintained a safe environment, Educated pt \T\ family on fall prevention, incl call for assistance when getting out of bed, Assessed \T\ reinforced patient's understanding of fall precautions, Provided non-skid footwear, Hourly rounding (assess needs \T\ fall precautionary measures) done, Used ambulatory aids as needed (educated on \T\ assisted with), Used gait belt as appropriate. Abuse screen: Denies threats or abuse. Denies injuries from another. Nutritional screening: No deficits noted. Tuberculosis screening: No symptoms or risk factors identified. Assessment: 08:53 GI: Abdomen is flat, round non-distended. ko1 Vital Signs: 08:15 BP 133 / 92; Pulse 84; Resp 16; Temp 98.2(O); Pulse Ox 100% on R/A; ko1 ED Course: 08:14 Patient arrived in ED. am2 08:18 Gisele Hopkins, RN is Primary Nurse. ko1 08:18 Win Aquino DO is Attending Physician. ms3 08:52 Triage completed. ko1 08:52 Arm band placed on right wrist. ko1 08:53 Patient has correct armband on for positive identification. Placed in gown. Bed in low ko1 position. Call light in reach. Side rails up X 1. Pulse ox on. NIBP on. 08:53 Patient did not have IV access during this emergency room visit. ko1 09:02 Urine --Ancillary (enter results) Sent. ko1 09:06 Jorje Oro MD is Referral Physician. ms3 09:07 No provider procedures requiring assistance completed. ko1 Administered Medications: 08:37 Drug: Ondansetron 4 mg Route: PO; ko1 09:11 Follow up: Response: No adverse reaction; Nausea is decreased ko1 Medication: 08:53 VIS not applicable for this client. ko1 Outcome: 09:06 Discharge ordered by . ms3 09:07 Discharged to home ambulatory. ko1 09:07 Condition: stable 09:07 Discharge instructions given to patient, Instructed on discharge instructions, follow up and referral plans. medication usage, Demonstrated understanding of instructions, follow-up care, medications, Prescriptions given X 2. 09:12 Patient left the ED. ko1 Signatures: Shaneka Austin am2 Win Aquino DO DO ms3 Gisele Hopkins, RN RN ko1 Corrections: (The following items were deleted from the chart) 08:40 08:40 Chief complaint: ko1 ko1
[2022-05-16 09:18] VITALS: BP 133/92; TEMP 98.2; O2SAT 100
== END 2022-05-16 09:12 | disposition home or self-care (01) ==
LOC: ER 08:12
DX: N39.0 Urinary tract infection, site not specified (principal)
CPT/HCPCS: 81003; 81025; 99284; Q0162

== ENCOUNTER → 2023-03-14 | Emergency (ER) | payer SELFPAY ==
[~2023-03-14] MED LIST: FENTANYL CITR 100 MCG/2 ML ONE; KETOROLAC 30 MG/ML INJ ONE; NA CHLORIDE 0.9% 1,000 ML ONE; TDAP (DIPHTH,PERTUSS(ACELL),TET VAC) 0.5 ML VIAL IMVAC ONE
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
[2023-03-14 16:48] LABS: Hematocrit 30.4 % (36.0-45.0); MCV 104.6 fL (80-100); RBC Red Blood Cell Count 2.91 M/uL (3.86-4.86)
[2023-03-14 16:49] LABS: Absolute Lymphocytes (CBC) 0.8 K/uL (0.7-4.9); Lymphocytes % 16.4 % (15.3-44.8); MPV 9.8 fL (7.6-11.3); Platelets 114 thou/uL (152-406)
[2023-03-14 17:05] LABS: Albumin 3.7 g/dL (3.4-5.0); Bilirubin Total 1.1 mg/dL (0.2-1.0); Potassium 3.2 mEq/L (3.5-5.1); Protein, Total 6.9 g/dL (6.4-8.2)
[2023-03-14 17:34] LABS: Blood Morphology Comment NOT SEEN (NOT SEEN); Platelet Estimate DECR; White Blood Cell Scan OK (OK)
--- NOTE | 2023-03-14 18:21 | EDPHYS ---
Physician Documentation [facility] Name: Loren Veliz Age: 43 yrs Sex: Female : 1980 Arrival Date: 03/14/2023 Time: 15:40 Bed 3 Private MD: ED Physician Jt Mccoy HPI: 03/14 16:00 This 43 yrs old Female presents to ER via EMS with complaints of fall. ec2 16:00 Patient arrives today for evaluation after a fall. 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 Possible loss of consciousness, no blood thinner use, no medication use. Patient reports head pain, no chest pain, no abdominal pain.. Historical: - Allergies: 15:47 Iodine; ph - Immunization history:: Adult Immunizations unknown. - Social history:: Smoking status: Patient reports the use of cigarette tobacco products, smokes one-half pack cigarettes per day. ROS: 16:00 Constitutional: as per hpi ec2 Exam: 16:00 Constitutional: GEN: No acute distress HEENT: -Head: Occiput with laceration, ec2 difficult to visualize given the degree of matted hair. -Eyes: EOMI CV: Tachycardia LUNGS: no respiratory distress ABD: non-tender SKIN: Wound noted to the occiput MSK: No C/T/L spine deformities RUE w/o bony deformity LUE w/o bony deformity RLE w/o bony deformity LLE w/o bony deformity NEURO: moves all extremities equally, GCS 15 (E4, V5, M6) Vital Signs: 15:43 BP 138 / 107; Pulse 100; Resp 16; Temp 97.8; Pulse Ox 100% on R/A; Weight 68.04 kg; ph Height 5 ft. 0 in. ; 17:00 BP 126 / 96; Pulse 102; Resp 16; Pulse Ox 98% ; ko1 18:30 BP 132 / 92; Pulse 98; Resp 15; Pulse Ox 98% ; ko1 15:43 Body Mass Index 29.29 (68.04 kg, 152.4 cm) ph Laceration: 18:18 Wound Repair of 2cm ( 0.8in ) subcutaneous laceration to scalp. Distal ec2 neuro/vascular/tendon intact. Anesthesia: Local anesthetic administered with none. Wound prep: Copious irrigation. Skin closed with 4 dimitri Dimitri using staple gun. Patient tolerated well. MDM: 15:54 Patient medically screened. ec2 16:00 Data reviewed: vital signs. ED course: Patient arrives today for evaluation after a ec2 fall. Examination remarkable for skin findings as noted above. Will obtain lab work, CT imaging. Currently considering processes such as scalp laceration, intracranial brain bleed, C-spine fracture.. 16:49 ED course: CT imaging shows no acute fractures however did show previous T9 and T11 ec2 fractures. On further has not patient with no focal TTP to this area. I suspect these are all chronic. . 17:08 ED course: CMP with slight hypokalemia noted. Lipase within normal ranges. . ec2 18:18 ED course: Laceration repaired with 4 dimitri with no issue. Will discharge home. ec2 Return precautions given.. 03/14 16:00 Order name: CBC with Diff; Complete Time: 17:37 ec2 03/14 16:00 Order name: CMP; Complete Time: 17:08 ec2 03/14 16:00 Order name: ETOH Level; Complete Time: 17:37 ec2 03/14 16:00 Order name: Lipase; Complete Time: 17:08 ec2 03/14 16:00 Order name: Type And Screen; Complete Time: 17:29 ec2 03/14 16:53 Order name: CBC Smear Scan; Complete Time: 17:37 EDMS 03/14 16:00 Order name: CT Traumagram (Head C Spine CAP wo con); Complete Time: 16:49 ec2 03/14 16:00 Order name: EKG; Complete Time: 16:00 ec2 03/14 16:00 Order name: EKG - Nurse/Tech ec2 03/14 16:00 Order name: IV Saline Lock; Complete Time: 16:20 ec2 03/14 16:00 Order name: Labs collected and sent; Complete Time: 16:37 ec2 03/14 16:00 Order name: NPO; Complete Time: 16:20 ec2 03/14 16:00 Order name: O2 Per Protocol; Complete Time: 16:20 ec2 03/14 16:00 Order name: O2 Sat Monitoring; Complete Time: 16:20 ec2 03/14 16:50 Order name: Wound Care; Complete Time: 17:48 ec2 03/14 17:41 Order name: Staple Remover Setup ec2 Administered Medications: 16:37 Drug: Boostrix Tdap IM 0.5 ml IM once; as a single dose Route: IM; Site: left deltoid; ph 16:37 Drug: NS 0.9% IV 1000 ml IV at 1 bolus Per protocol; 1000 mL bolus Route: IV; Rate: 1 ph bolus; Site: left antecubital; 16:37 Drug: fentaNYL (PF) IVP 50 mcg IVP once Route: IVP; Site: left antecubital; ph 17:48 Drug: Ketorolac IVP 15 mg IVP once Route: IVP; Site: left antecubital; ko1 Disposition Summary: 03/14/23 18:20 Discharge Ordered Condition: Stable ec2 Diagnosis - Laceration without foreign body of scalp ec2 Followup: ec2 - With: Private Physician - When: - Reason: Recheck today's complaints Discharge Instructions: - Discharge Summary Sheet ec2 - Laceration Care, Adult, [id number] ec2 Forms: - Work release form ko1 - Medication Reconciliation Form ec2 - Thank You Letter ec2 - Antibiotic Education ec2 - Prescription Opioid Use ec2 - Patient Portal Instructions ec2 - Leadership Thank You Letter ec2 Signatures: Dispatcher [employer] Bessy Ghosh RN RN Gisele Salvador RN RN ko1 Jt Mccoy MD MD ec2
--- NOTE | 2023-03-14 18:21 | ER ---
Nurse's Notes [facility] Name: Loren Veliz Age: 43 yrs Sex: Female : 1980 Arrival Date: 03/14/2023 Time: 15:40 Bed 3 Private MD: Diagnosis: Laceration without foreign body of scalp Presentation: 03/14 15:43 Chief complaint: EMS states: Was at work at [employer], had unwitnessed fall, bystanders ph report hearing her yell, pt was awake when EMS arrived on scene, unknown LOC, pt has no recollection of events, laceration and hematoma to back of head. Coronavirus screen: Vaccine status:. Ebola Screen: No symptoms or risks identified at this time. Initial Sepsis Screen: Does the patient meet any 2 criteria? No. Patient's initial sepsis screen is negative. Does the patient have a suspected source of infection? No. Patient's initial sepsis screen is negative. Risk Assessment: Do you want to hurt yourself or someone else? Patient reports no desire to harm self or others. Onset of symptoms was March 14, 2023. 15:43 Method Of Arrival: EMS: [facility] 15:43 Acuity: YULIET 3 ph 15:48 Care prior to arrival: Cervical collar in place. Placed on backboard. Triage Assessment: 15:45 General: Appears in no apparent distress. uncomfortable, Behavior is calm, cooperative, ko1 appropriate for age. Historical: - Allergies: 15:47 Iodine; ph - Immunization history:: Adult Immunizations unknown. - Social history:: Smoking status: Patient reports the use of cigarette tobacco products, smokes one-half pack cigarettes per day. Screenin:47 [facility] ED Fall Risk Assessment (Adult) History of falling in the last 3 months, ph including since admission Yes- single mechanical fall (1 pt) Confusion or Disorientation No (0 pts) Intoxicated or Sedated Impaired Gait No (0 pts) Mobility Assist Device Used No (0 pt) Altered Elimination No (0 pt) Score/Fall Risk Level 0 - 2 = Low Risk Oriented to surroundings, Maintained a safe environment, Provided non-skid footwear, Hourly rounding (assess needs \T\ fall precautionary measures) done. Abuse screen: Denies threats or abuse. Denies injuries from another. Nutritional screening: No deficits noted. Tuberculosis screening: No symptoms or risk factors identified. Assessment: 15:45 Pain: Complains of pain in left parietal area. Neuro: Reports headache in left ko1 occipital area. Cardiovascular: No deficits noted. Respiratory: No deficits noted. GI: No deficits noted. : No deficits noted. EENT: No deficits noted. Derm: No deficits noted. Musculoskeletal: No deficits noted. Injury Description: Laceration sustained to left parietal area is jagged, bleeding moderately, a small amount of bleeding noted at this time. Vital Signs: 15:43 BP 138 / 107; Pulse 100; Resp 16; Temp 97.8; Pulse Ox 100% on R/A; Weight 68.04 kg; ph Height 5 ft. 0 in. ; 17:00 BP 126 / 96; Pulse 102; Resp 16; Pulse Ox 98% ; ko1 18:30 BP 132 / 92; Pulse 98; Resp 15; Pulse Ox 98% ; ko1 15:43 Body Mass Index 29.29 (68.04 kg, 152.4 cm) ph ED Course: 15:41 Patient arrived in ED. ko1 15:41 Gisele Hopkins, RN is Primary Nurse. ko1 15:45 Provided Education on: wound care. ko1 15:45 Assist provider with laceration repair on scalp using demetria. Set up tray. Performed ko1 by Jt Mccoy MD Patient tolerated well. Irrigation of laceration on scalp irrigated with normal saline Patient tolerated well. 15:45 Maintain EMS IV. Dressing intact. Good blood return noted. Site clean \T\ dry. Gauge \T\ ko 1 site: 18g L AC. 15:47 Triage completed. ph 15:47 Patient has correct armband on for positive identification. Bed in low position. Call ph light in reach. Side rails up X2. Pulse ox on. NIBP on. 15:48 Arm band placed on Patient placed in an exam room. ph 15:51 Jt Mccoy MD is Attending Physician. ec2 16:24 CT Traumagram (Head C Spine CAP wo con) In Process Unspecified. EDMS 18:52 IV discontinued, intact, bleeding controlled, No redness/swelling at site. Pressure ko1 dressing applied. Administered Medications: 16:37 Drug: Boostrix Tdap IM 0.5 ml IM once; as a single dose Route: IM; Site: left deltoid; ph 16:37 Drug: NS 0.9% IV 1000 ml IV at 1 bolus Per protocol; 1000 mL bolus Route: IV; Rate: 1 ph bolus; Site: left antecubital; 16:37 Drug: fentaNYL (PF) IVP 50 mcg IVP once Route: IVP; Site: left antecubital; ph 17:48 Drug: Ketorolac IVP 15 mg IVP once Route: IVP; Site: left antecubital; ko1 Medication: 15:48 VIS not applicable for this client. ph Outcome: 18:20 Discharge ordered by . ec2 18:53 Discharged to home ambulatory, with friend, ko1 18:53 Condition: improved 18:53 Discharge instructions given to patient, friend, Instructed on discharge instructions, follow up and referral plans. wound care, Demonstrated understanding of instructions, follow-up care, wound care, 18:53 Patient left the ED. ko1 Signatures: Dispatcher [employer] Bessy Ghosh RN RN Gisele Hopkins RN RN ko1 Jt Mccoy MD MD ec2
[2023-03-14 20:18] VITALS: BP 138/107; TEMP 97.8; O2SAT 100
--- NOTE | 2023-03-15 13:20 | EKG ---
Test Date: 2023-03-14 Test Time: 18:23:07 Equipment Planner: RADHA MEASUREMENT RESULTS: Intervals: Rate: 99 WV: 158 QRSD: 74 QT: 400 QTc: 513 [place]: P: 77 WV: 158 QRS: 53 T: 71 INTERPRETIVE STATEMENTS: Sinus rhythm with premature atrial complexes Prolonged QT Abnormal ECG No previous ECG available for comparison Electronically Signed On 03-15-23 13:18:38 [employer] by Esdras Russ
== END ==
LOC: ER 15:40
PROC: 0HQ0XZZ Repair Scalp Skin, External Approach (ICD-10-PCS; principal; 2023-03-14)
DX: S01.01XA Laceration without foreign body of scalp, initial encounter (principal)
CPT/HCPCS: 36415; 70450; 71250; 72125; 80053; 82077; 83690; 85025; 86850; 86900; 86901; 93005; 96372; 96374; 96375; 99284; J3010; J7030